=== PATIENT | male | born 1955 | race Caucasian/White ===

== ENCOUNTER 2017-08-26 08:43 | Emergency (ER) | payer MEDICARE ==
--- NOTE | 2017-08-26 09:35 | XRAY Preliminary Report ---
Exam: XR KNEE 3 VIEW RT IMPRESSION: Mild DJD [facility] SITE ID: [id number]
--- NOTE | 2017-08-26 09:38 | XRAY Report ---
EXAM: RIGHT KNEE RADIOGRAPHY EXAM DATE: 08/26/2017 09:25 AM. CLINICAL HISTORY: Rt knee pain, no known trauma. COMPARISON: None. TECHNIQUE: 3 views. FINDINGS: Bones: Normal. No fractures or bone lesions. Joints: Osteophyte patellofemoral compartment. No effusion. No subluxations. Soft Tissues: Normal. No soft tissue swelling. IMPRESSION: Mild DJD RADIA Referring Provider Line: [phone] SITE ID: [id number]
[2017-08-26] MEDS ORDERED: DEXAMETHASONE 10 MG/ML VIAL PO STA (10:23)
[2017-08-26] MEDS ORDERED: LIDOCAINE PATCH 5% TOP STA (10:23)
[2017-08-26 11:05] VITALS: BP 132/77
--- NOTE | 2017-08-26 11:49 | ED Physician Documentation ---
History of Present Illness - Stated complaint Stated Complaint: KNEE PX - Chief complaint Chief Complaint: Ext Problem - Additonal information Additional information: hx from pt 61 male thin with knobby knees after kneeling in the garden he developed very painful swelling to ant right knee no fever or redness Review of Systems Skin: denies: Rash Musculoskeletal: reports: Joint pain PD PAST MEDICAL HISTORY - Past Medical History Past Medical History: Yes GI: GERD Musculoskeletal: Chronic back pain - Past Surgical History Past Surgical History: Yes Ortho: Spine surgery - Present Medications Home Medications: Ambulatory Orders Medication Instructions Recorded Confirmed Gabapentin [Neurontin] 300 mg PO 3-4XD 01/29/13 08/26/17 Cyclobenzaprine [Flexeril] 10 mg PO TID PRN #20 tablet 01/16/16 08/26/17 Oxycodone HCl/Acetaminophen 1 - 2 tab PO Q4H PRN #15 tablet 01/16/16 08/26/17 [Percocet 5-325 mg Tablet] oxyCODONE [Roxicodone] 5 mg PO Q6H PRN #4 tablet 08/26/17 predniSONE [Deltasone] 40 mg PO DAILY 5 Days tablet 08/26/17 - Allergies Allergies/Adverse Reactions: Allergies Allergy/AdvReac Type Severity Reaction Status Date / Time acetaminophen [From Vicodin] AdvReac Unknown Hallucinati Verified 08/26/17 09:00 ons hydrocodone bitartrate * AdvReac Unknown Hallucinati Verified 08/26/17 09:00 [From Vicodin] ons Sulfa (Sulfonamide AdvReac Unknown Rash Verified 08/26/17 09:00 Antibiotics) - Social History Does the pt smoke?: No Smoking Status: Never smoker Does the pt drink ETOH?: No Does the pt have substance abuse?: No - Immunizations Immunizations are current?: Yes Immunizations: TDAP >10years/unknown - POLST Patient has POLST: No PD ED PE NORMAL - Vitals Vital signs reviewed: Yes - Cardiac Cardiac: RRR - Respiratory Respiratory: Clear bilaterally - Derm Derm: Normal color, No rash - Extremities Extremities: Other (R knee + prepatellar swelling and tenderness, slightly warm but no erythema, prepatella pain with ROM but no sig knee jt pain or limited ROM ) Results - Vitals Vitals: Vital Signs - 24 hr 08/26/17 08/26/17 08:51 11:04 Temperature 36.6 C 36.8 C Heart Rate 96 75 Respiratory 20 18 Rate Blood Pressure 103/84 H 132/77 H O2 Saturation 98 100 Oxygen O2 Source Room air PD MEDICAL DECISION MAKING - ED course ED course: c/w prepatellar bursitis, not infected Departure - Departure Disposition: 01 Home, Self Care Clinical Impression: Prepatellar bursitis Qualifiers: Laterality: right Qualified Code(s): M70.41 - Prepatellar bursitis, right knee Condition: Good Instructions: ED Bursitis Follow-Up: Perez García MD [Primary Care Provider] - [facility] [Provider Group] Prescriptions: oxyCODONE [Roxicodone] 5 mg PO Q6H PRN #4 tablet PRN Reason: Severe Pain predniSONE [Deltasone] 40 mg PO DAILY 5 Days tablet Comments: The steroids should decrease the pain and swelling Ice and an RJ wrap will help too. I wrote for 4 strong pain pills to get you through today until the steroids start to work. Please call orthopedics to make an appointment for follow up and further care if the symptoms persist Return if worse (fever, redness, drainage, worsening pain)
== END 2017-08-26 11:56 | disposition home or self-care (01) ==
LOC: ED 08:43
DX: M70.41 Prepatellar bursitis, right knee (principal); Y93.H2 Activity, gardening and landscaping
CPT/HCPCS: 73562; 99283; A9270

== ENCOUNTER 2017-09-24 12:36 | Outpatient (CLI) | payer MEDICARE ==
--- NOTE | 2017-09-24 16:16 | MRI Report ---
EXAM: RIGHT KNEE MRI WITHOUT CONTRAST EXAM DATE: 09/24/2017 01:31 PM. CLINICAL HISTORY: Right knee medial meniscus tear. COMPARISON: Knee x-ray 09/24/2017. TECHNIQUE: Multiplanar, multisequence T1-weighted and fluid-sensitive sequences of the knee without c ontrast. Other: None. FINDINGS: Bones: No fractures or subluxations. No marrow edema. No bone lesions. Articular Cartilage: Unremarkable. Medial Meniscus: The medial meniscus is intact. Lateral Meniscus: The lateral meniscus is intact. Cruciate Ligaments: The anterior and posterior cruciate ligaments are intact. Collateral Ligaments: The medial collateral and lateral collateral ligamentous structures are intact. Tendons: The quadriceps, patellar, semimembranosus, and popliteus tendons are unremarkable. Musculature: No edema or fatty atrophy. Other: No effusion. No popliteal cyst. No loose bodies. The medial and lateral retinacula are intact . There is fluid in the prepatellar and infrapatellar bursa. Both bursal fluid collections appear loc ulated, suggesting inflammation. There is mild adjacent subcutaneous edema. IMPRESSION: 1. Prepatellar and infrapatellar bursitis. 2. No meniscal tear. The ligaments appear intact. RAD[facility] MUSCULOSKELETAL RADIOLOGY SECTION Referring Provider Line: [phone] SITE ID: [id number]
== END 2017-09-24 12:37 | disposition home or self-care (01) ==
LOC: DI 12:36
PROVIDERS: ATTEND Orthopaedic Surgery
DX: M71.561 Other bursitis, not elsewhere classified, right knee (principal)

== ENCOUNTER 2018-03-28 16:45 | Emergency (ER) | payer MEDICARE ==
[2018-03-28] MEDS ORDERED: LIDOCAINE 2% 10 ML MDV ONE (17:18)
--- NOTE | 2018-03-28 17:25 | ED Physician Documentation ---
PD HPI UPPER EXT INJURY - Stated complaint Stated Complaint: R THUMB LAC - Chief complaint Chief Complaint: Laceration - History obtained from History obtained from: Patient - History of Present Illness Location: Right, Finger (thumb) Type of injury: Laceration Where injury occurred: Home Timing - onset: Today Timing - duration: Minutes Timing - details: Abrupt onset, Still present Improved by: Rest, Immobilization Worsened by: Moving, Palpating Associated symptoms: No: Weakness, Numbness, Tingling Contributing factors: No: Anticoagulated Similar symptoms before: Diagnosis (laceration) Recently seen: Not recently seen - Additonal information Additional information: Previously well 62-year-old male was using a line brandon, trimming his yard and he went to cut the line and lacerated his thumb on the line cutter. Review of Systems Constitutional: denies: Fever Nose: denies: Congestion Throat: denies: Sore throat Respiratory: denies: Cough GI: denies: Vomiting Skin: reports: Laceration (s) PD PAST MEDICAL HISTORY - Past Medical History Past Medical History: Yes GI: GERD Musculoskeletal: Chronic back pain - Past Surgical History Past Surgical History: Yes Ortho: Spine surgery - Present Medications Home Medications: Ambulatory Orders Medication Instructions Recorded Confirmed Gabapentin [Neurontin] 300 mg PO 3-4XD 01/29/13 08/26/17 Oxycodone HCl/Acetaminophen 1 - 2 tab PO Q4H PRN #15 tablet 01/16/16 08/26/17 [Percocet 5-325 mg Tablet] - Allergies Allergies/Adverse Reactions: Allergies Allergy/AdvReac Type Severity Reaction Status Date / Time acetaminophen [From Vicodin] AdvReac Unknown Hallucinati Verified 03/28/18 16:50 ons hydrocodone bitartrate * AdvReac Unknown Hallucinati Verified 03/28/18 16:50 [From Vicodin] ons Sulfa (Sulfonamide AdvReac Unknown Rash Verified 03/28/18 16:50 Antibiotics) - Social History Does the pt smoke?: No Smoking Status: Never smoker Does the pt drink ETOH?: No Does the pt have substance abuse?: No - Immunizations Immunizations are current?: Yes Immunizations: TDAP current <10years - POLST Patient has POLST: No PD ED PE NORMAL - Vitals Vital signs reviewed: Yes (normal ) - General General: Alert and oriented X 3, No acute distress, Well developed/nourished - HEENT HEENT: Atraumatic, PERRL, EOMI - Respiratory Respiratory: No respiratory distress - Derm Derm: Normal color, Warm and dry, No rash - Extremities Extremities: No deformity, No edema, Other (over the tip of the left thumb is a clean linear laceration about 2.5cm in length. 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, No motor deficit, No sensory deficit, Normal speech Eye Opening: Spontaneous Motor: Obeys Commands Verbal: Oriented GCS Score: 15 - Psych Psych: Normal mood, Normal affect Results - Vitals Vitals: Vital Signs - 24 hr 03/28/18 16:48 Temperature 35.2 C L Heart Rate 76 Respiratory 18 Rate Blood Pressure 124/62 O2 Saturation 96 Oxygen O2 Source Room air Procedures - Laceration (location) right thumb Length in cm: 2.5 Wound type: Linear, Clean Neurovascular status: Sensory intact, Motor intact, Vascular intact Tendon involvement: Tendon intact Anesthesia: Lidocaine 2% Wound Preparation: Hibiclens, Irrigated copiously NS, Wound explored, To the base Skin layer closure: Nylon, Interrupted, Size #-0 - enter number (4-0) Other: Patient tolerated well, No complications, Neurovascular intact, Dressing applied, Tetanus UTD Complexity: Simple PD MEDICAL DECISION MAKING - ED course Complexity details: reviewed results, re-evaluated patient, considered differential, d/w patient ED course: 62-year-old male with a laceration to his thumb is sutured this laceration is simple and he is up-to-date on his tetanus. - Sepsis Event Vital Signs: Vital Signs - 24 hr 03/28/18 16:48 Temperature 35.2 C L Heart Rate 76 Respiratory 18 Rate Blood Pressure 124/62 O2 Saturation 96 Oxygen O2 Source Room air Departure - Departure Disposition: 01 Home, Self Care Clinical Impression: Laceration of right thumb Qualifiers: Encounter type: initial encounter Damage to nail status: without damage Foreign body presence: without foreign body Qualified Code(s): S61.011A - Laceration without foreign body of right thumb without damage to nail, initial encounter Condition: Stable Instructions: ED Laceration Hand Follow-Up: Perez García MD [Primary Care Provider] - Comments: Sutures should be removed in 7-10 days.
[2018-03-28 17:51] VITALS: BP 119/68
== END 2018-03-28 17:50 | disposition home or self-care (01) ==
LOC: ED 16:45
DX: S61.011A Laceration without foreign body of right thumb without damage to nail, initial encounter (principal); W29.3XXA Contact with powered garden and outdoor hand tools and machinery, initial encounter; Y93.H2 Activity, gardening and landscaping; Y92.007 Garden or yard of unspecified non-institutional (private) residence as the place of occurrence of the external cause
CPT/HCPCS: 12001; 99282; 99283

== ENCOUNTER 2018-09-24 17:51 | Emergency (ER) | payer MEDICARE ==
[2018-09-24 19:33] VITALS: BP 110/72
== END 2018-09-24 20:25 | disposition left against medical advice (07) ==
LOC: ED 17:51
DX: S00.411A Abrasion of right ear, initial encounter (principal); W22.8XXA Striking against or struck by other objects, initial encounter; Y92.89 Other specified places as the place of occurrence of the external cause; Z53.21 Procedure and treatment not carried out due to patient leaving prior to being seen by health care provider

== ENCOUNTER 2018-10-07 08:00 | Outpatient (CLI) | payer MEDICARE ==
[2018-10-07 13:13] LABS: BASOPHILS # (AUTO) 0.1 10^3/uL (0.0-0.1); BASOPHILS % (AUTO) 1.1 %; EOSINOPHILS # (AUTO) 0.2 10^3/uL (0.0-0.7); EOSINOPHILS % (AUTO) 3.2 %; HGB - HEMOGLOBIN 14.6 g/dL (14.0-18.0); LYMPHOCYTES # (AUTO) 1.6 10^3/uL (1.5-3.5); LYMPHOCYTES % (AUTO) 23.7 %; MEAN CORPUSCULAR HGB CONC 35.2 g/dL (32.0-36.0); MEAN CORPUSCULAR VOLUME 85.3 fL (80.0-94.0); MEAN PLATELET VOLUME 7.8 fL (7.4-11.4); MONOCYTES # (AUTO) 0.6 10^3/uL (0.0-1.0); MONOCYTES % (AUTO) 9.5 %; NEUTROPHILS # (AUTO) 4.1 10^3/uL (1.5-6.6); NEUTROPHILS % (AUTO) 62.5 %; PLT - PLATELET COUNT 256 10^3/uL (130-450); RED BLOOD COUNT 4.87 10^6/uL (4.70-6.10); RED CELL DISTRIBUTION WIDTH 13.3 % (12.0-15.0); WHITE BLOOD COUNT 6.6 x10^3/uL (4.8-10.8)
[2018-10-07 13:28] LABS: ALBUMIN/GLOBULIN RATIO 1.4 (1.0-2.2); ALKALINE PHOSPHATASE 69 IU/L (42-121); ALT ALANINE AMINOTRANSFERASE 42 IU/L (10-60); AST ASPARTATE AMINOTRANSFERASE 32 IU/L (10-42); BILIRUBIN,TOTAL 0.9 mg/dL (0.2-1.0); BUN - BLOOD UREA NITROGEN 18 mg/dL (6-20); CALCIUM 9.2 mg/dL (8.5-10.3); CARBON DIOXIDE - CO2 26 mmol/L (21-32); CHLORIDE 103 mmol/L (101-111); CHOL/HDL RATIO 4.3 (<5.0); CHOLESTEROL 187 mg/dL; GFR - MDRD 76 (>89); GLUCOSE 129 mg/dL (70-100); HDL CHOLESTEROL 44 mg/dL; LDL CHOLESTEROL,CALCULATED 124 mg/dL; LDL/HDL RATIO 2.8 (<3.6); SODIUM 136 mmol/L (135-145); TOTAL PROTEIN 6.9 g/dL (6.7-8.2); VLDL CHOLESTEROL 19 mg/dL
== END 2018-10-07 23:59 | disposition home or self-care (01) ==
LOC: LAB.WCP 08:00
PROVIDERS: ATTEND Family Medicine
DX: E78.9 Disorder of lipoprotein metabolism, unspecified (principal); K76.0 Fatty (change of) liver, not elsewhere classified
CPT/HCPCS: 36415; 80053; 80061; 84443; 85025; G0103; 83721; 84153

== ENCOUNTER 2019-03-17 08:52 | Emergency (ER) | payer MEDICARE ==
[2019-03-17] MEDS ORDERED: HYDROmorphone 1 MG/ML CARPUJECT IVP STA (09:22)
[2019-03-17 09:40] LABS: BASOPHILS # (AUTO) 0.1 10^3/uL (0.0-0.1); BASOPHILS % (AUTO) 0.3 %; EOSINOPHILS # (AUTO) 0.1 10^3/uL (0.0-0.7); HGB - HEMOGLOBIN 13.8 g/dL (14.0-18.0); LYMPHOCYTES # (AUTO) 2.3 10^3/uL (1.5-3.5); LYMPHOCYTES % (AUTO) 15.9 %; MEAN CORPUSCULAR HEMOGLOBIN 29.9 pg (27.0-31.0); MEAN CORPUSCULAR HGB CONC 35.8 g/dL (32.0-36.0); MEAN CORPUSCULAR VOLUME 83.5 fL (80.0-94.0); MEAN PLATELET VOLUME 9.1 fL (7.4-11.4); MONOCYTES # (AUTO) 0.8 10^3/uL (0.0-1.0); MONOCYTES % (AUTO) 5.2 %; NEUTROPHILS # (AUTO) 10.3 10^3/uL (1.5-6.6); NEUTROPHILS % (AUTO) 72.3 %; PLT - PLATELET COUNT 277 10^3/uL (130-450); RED BLOOD COUNT 4.62 10^6/uL (4.70-6.10); RED CELL DISTRIBUTION WIDTH 12.3 % (12.0-15.0); WHITE BLOOD COUNT 14.3 x10^3/uL (4.8-10.8)
--- NOTE | 2019-03-17 09:50 | ED Physician Documentation ---
History of Present Illness - Stated complaint Stated Complaint: KNEE SWOLLEN - Chief complaint Chief Complaint: Ext Problem - History obtained from History obtained from: Patient, Family - History of Present Illness Timing: How many days ago (several) Pain level max: 10 Pain level now: 9 Severity Comments: severe Left knee pain Quality: aching, no radiation Radiates to: none Improved by: rest, not moving Worsened by: touching, moving, weight bearing Associated symptoms: no fever. Mild redness and moderate swelling of the L knee - Treatment prior to arrival Treatment prior to arrival: Pt is taking percocet for pain. he was seen 2 times at [place] for the same. At the first ED visit they drained his L knee and sent labs. They called him back the following day for reports of a positive culture. But then sent him home again when he returned. His and him are not sure of his diagnosis. No hx of traum, no hx of gout. Pt has no hx of diabetes or immunocompromise. He has no hx of IVDA. he denies taking blood thinners. He has no hx of knee surgery or injury prior to this event. Review of Systems Ten Systems: 10 systems reviewed and negative Constitutional: denies: Fever, Chills GI: denies: Abdominal Pain, Nausea, Vomiting Skin: reports: Other (redness over L knee) Musculoskeletal: reports: Joint pain, Joint swelling, Pain with weight bearing Neurologic: denies: Focal weakness, Numbness Immunocompromised: reports: Reviewed and negative PD PAST MEDICAL HISTORY - Past Medical History Past Medical History: Yes GI: GERD Musculoskeletal: Chronic back pain - Past Surgical History Past Surgical History: Yes Ortho: Spine surgery - Present Medications Home Medications: Ambulatory Orders Medication Instructions Recorded Confirmed Gabapentin [Neurontin] 300 mg PO 3-4XD 01/29/13 09/24/18 Oxycodone HCl/Acetaminophen 1 - 2 tab PO Q4H PRN #15 tablet 01/16/16 09/24/18 [Percocet 5-325 mg Tablet] Ascorbic Acid [Vitamin C] 09/24/18 Cholecalciferol (Vitamin D3) 09/24/18 [Vitamin D3] [place]-3/Dha/Epa/Fish Oil [Fish Oil 09/24/18 1,000 mg Softgel] RX: Multivitamin [Daily Multiple 09/24/18 Vitamin] Zinc Gluconate [Zinc] 09/24/18 Amox/Clav 875/125 [Augmentin] 1 each PO Q12H #14 tablet 03/17/19 - Allergies Allergies/Adverse Reactions: Allergies Allergy/AdvReac Type Severity Reaction Status Date / Time clindamycin Allergy Edema Verified 03/17/19 09:17 acetaminophen [From Vicodin] AdvReac Unknown Hallucinati Verified 03/17/19 09:17 ons hydrocodone bitartrate * AdvReac Unknown Hallucinati Verified 03/17/19 09:17 [From Vicodin] ons Sulfa (Sulfonamide AdvReac Unknown Rash Verified 03/17/19 09:17 Antibiotics) aspirin AdvReac Unknown Verified 03/17/19 09:17 - Social History Does the pt smoke?: No Smoking Status: Never smoker Does the pt drink ETOH?: No Does the pt have substance abuse?: No - Immunizations Immunizations are current?: Yes Immunizations: TDAP current <10years - POLST Patient has POLST: No PD ED PE NORMAL - Vitals Vital signs reviewed: Yes - General General: Alert and oriented X 3 - HEENT HEENT: Atraumatic - Neck Neck: Supple, no meningeal sign - Cardiac Cardiac: RRR - Respiratory Respiratory: No respiratory distress - Abdomen Abdomen: Soft, Non distended - Male Male : Deferred - Rectal Rectal: Deferred - Derm Derm: Warm and dry, No rash, Other (mild erythema overlying L knee) - Neuro Neuro: Alert and oriented X 3 Eye Opening: Spontaneous Motor: Obeys Commands Verbal: Oriented GCS Score: 15 - Psych Psych: Normal mood, Normal affect PD ED PE EXPANDED - Extremities Extremities: Tenderness, Swelling, Motor intact, Sensory intact, Vascular intact, Other (right warm prepatellar bursa. no pain with axial loading of the L leg). No: Deformity, Pedal edema L, Left calf TTP/cord Results - Vitals Vitals: Oxygen O2 Source Room air - Labs Labs: Laboratory Tests 03/17/19 03/17/19 03/17/19 09:30 09:30 09:30 WBC 14.3 H RBC 4.62 L Hgb 13.8 L Hct 38.6 L MCV 83.5 MCH 29.9 MCHC 35.8 RDW 12.3 Plt Count 277 MPV 9.1 Neut # (Auto) 10.3 H Lymph # (Auto) 2.3 [place] # (Auto) 0.8 Eos # (Auto) 0.1 Baso # (Auto) 0.1 Absolute Nucleated RBC 0.00 Nucleated RBC % 0.0 ESR 11 Sodium 136 Potassium 3.6 Chloride 99 L Carbon Dioxide 23 Anion Gap 14.0 H BUN 18 Creatinine 1.0 Estimated GFR (MDRD) 76 L Glucose 265 H Calcium 8.9 C-Reactive Protein 1.6 H Procedures - Arthrocentesis Joint: Knee (prepatellar L knee bursa was aspirated.) Preparation: Consent obtained, Sterile prep and drape, Ultrasound used Anesthesia: Lidocaine 1% Fluid: Clear (serous fluid) Aftercare: Dressing applied, No complications, Other (pain improved after), Patient tolerated well PD MEDICAL DECISION MAKING - ED course Complexity details: reviewed old records, reviewed results, re-evaluated patient, considered differential, d/w patient, d/w family ED course: ddx - inflammatory vs infectious bursitis, septic joint, arthritis, gout, pseudogout. 63 y/o M with L knee pain with fluctuance prepatellar bursa. Seen at outside hospital and evaluated for septic arthritis and had a tap of the bursa not the knee joint which showed staph aureus. Labs here some some mild leukocytosis. pt has a mildly elevated crp and a normal esr. he is afebrile and he has no pain with axial loading of the L knee but pain mainly with bending of the knee, likely aggravating the bursa. Suspect this is an infectious bursitis. Aspirated fluid from the bursa appears normal. Pain improved after aspiration. Will start antibiotics and continue analgesics for bursitis. Pt and given instructions for return if worsening pain, fever or inability to bear weight or new concerns. Departure - Departure Disposition: 01 Home, Self Care Clinical Impression: Prepatellar bursitis Condition: Stable Record reviewed to determine appropriate education?: Yes Instructions: ED Bursitis Follow-Up: Perez García MD [Primary Care Provider] - Prescriptions: Amox/Clav 875/125 [Augmentin] 1 each PO Q12H #14 tablet Comments: Your examination, labs and bursa aspiration were consistent with knee bursitis. Your symptoms improved here with aspiration of bursal fluid and pain medicine. Continue your steroid course until complete. Ice the knee at least 3 times a day for 20 minutes at a time until improved. Use an ranjeet wrap for pain and to improve comfort. Discharge Date/Time: 03/17/19 14:03
[2019-03-17 09:59] LABS: CALCIUM 8.9 mg/dL (8.5-10.3); CRP - C-REACTIVE PROTEIN 1.6 mg/dL (0-1.0)
[2019-03-17] MEDS ORDERED: LIDOCAINE 1% 2 ML VIAL ONE (13:12)
[2019-03-17] MEDS ORDERED: cephALEXin 250 MG CAPSULE PO STA (13:30)
[2019-03-17] MEDS ORDERED: AMOX/CLAV 875 MG/125 MG TABLET PO STA (13:39)
[2019-03-17] MEDS ORDERED: LIDOCAINE 1% 2 ML VIAL SUBQ STA (13:45)
[2019-03-17 13:46] VITALS: BP 133/83
== END 2019-03-17 14:03 | disposition home or self-care (01) ==
LOC: ED 08:52
DX: M70.42 Prepatellar bursitis, left knee (principal)
CPT/HCPCS: 20610; 36415; 80048; 85025; 85651; 86140; 96374; 99283; 99284; A9270; J1170; 20600

== ENCOUNTER 2019-10-28 10:30 | Outpatient (CLI) | payer MEDICARE | END 2019-10-28 23:59 | disposition home or self-care (01) | LOC: LAB.WCP 10:30 | PROVIDERS: ATTEND Nurse Practitioner Family | DX: R05 Cough (principal) | CPT/HCPCS: 87275; 87276 ==

== ENCOUNTER 2019-10-28 10:39 | Outpatient (CLI) | payer MEDICARE ==
--- NOTE | 2019-10-28 15:03 | XRAY Report ---
Reason: COUGH Procedure Date: 10/28/2019 Accession Number: [id number] / [id number] Procedure: WCP - Chest 2 View X-Ray CPT Code: 80471 Final Report FULL RESULT: EXAM: CHEST RADIOGRAPHY EXAM DATE: 10/28/2019 10:39 AM. CLINICAL HISTORY: COUGH. COMPARISON: CHEST 2 VIEW PA/LAT 07/16/2018 10:25 AM. TECHNIQUE: 2 views. FINDINGS: Lungs/Pleura: No focal opacities evident. No pleural effusion. No pneumothorax. Normal volumes. Mediastinum: Heart and mediastinal contours are unremarkable. Other: Postsurgical changes in the cervical spine. Degenerative changes in the thoracic spine and shoulders. IMPRESSION: 1. No radiographic evidence of acute cardiopulmonary disease. 2. Stable degenerative changes in the spine and shoulders and stable postsurgical changes in the cervical spine. RADIA
== END 2019-10-28 23:59 | disposition home or self-care (01) ==
LOC: DI.WCP 10:39
PROVIDERS: ATTEND Nurse Practitioner Family
DX: R05 Cough (principal)
CPT/HCPCS: 71046; 87275; 87276

== ENCOUNTER 2020-07-22 10:15 | Emergency (ER) | payer MEDICARE ==
--- NOTE | 2020-07-22 11:01 | ED Physician Documentation ---
PD HPI CHEST PAIN - Stated complaint Stated Complaint: LT SIDE CHEST PX - Chief complaint Chief Complaint: Cardiac - History obtained from History obtained from: Patient - History of Present Illness Timing - onset: How many days ago (few) Timing - onset during: Exertion (he had helped lift a wheelchair ramp into place and had onset left uper chest pain later in the day. Has continued pain with ROM of the left arm, lifting, and some with palpation of the chest. No pain with breathing.) Timing - duration: Days Timing - details: Gradual onset, Waxing and waning Quality: Aching, Pain Location: Left chest Radiation: No: Jaw, Neck, Back Improved by: Rest Worsened by: Exertion, Movement. No: Inspiration Associated symptoms: No: Shortness of air, Diaphoresis, Nausea, Feeling faint / dizzy, General Weakness, Palpitations, Cough Similar symptoms before: Has not had sx before Review of Systems Constitutional: denies: Fever, Chills Nose: denies: Rhinorrhea / runny nose, Congestion Throat: denies: Sore throat Cardiac: reports: Chest pain / pressure. denies: Palpitations, Pedal edema, Calf pain Respiratory: denies: Dyspnea, Cough, Wheezing PD PAST MEDICAL HISTORY - Past Medical History Cardiovascular: None Respiratory: None Endocrine/Autoimmune: None GI: GERD Musculoskeletal: Chronic back pain - Past Surgical History Past Surgical History: Yes Ortho: Spine surgery - Present Medications Home Medications: Ambulatory Orders Medication Instructions Recorded Confirmed Gabapentin [Neurontin] 300 mg PO 3-4XD 01/29/13 09/24/18 Oxycodone HCl/Acetaminophen 1 - 2 tab PO Q4H PRN #15 tablet 01/16/16 09/24/18 [Percocet 5-325 mg Tablet] Ascorbic Acid [Vitamin C] 09/24/18 Cholecalciferol (Vitamin D3) 09/24/18 [Vitamin D3] Multivitamin [Daily Multiple 09/24/18 Vitamin] [place]-3/Dha/Epa/Fish Oil [Fish Oil 09/24/18 1,000 mg Softgel] Zinc Gluconate [Zinc] 09/24/18 Amox/Clav 875/125 [Augmentin] 1 each PO Q12H #14 tablet 03/17/19 Naproxen [EC-Naproxen] 500 mg PO BID #20 tablet. 07/22/20 oxyCODONE [Roxicodone] 5 mg PO Q6H PRN #14 tablet 07/22/20 tiZANidine [Zanaflex] 4 mg PO Q8H PRN #20 tablet 07/22/20 - Allergies Allergies/Adverse Reactions: Allergies Allergy/AdvReac Type Severity Reaction Status Date / Time clindamycin Allergy Edema Verified 07/22/20 10:32 acetaminophen [From Vicodin] AdvReac Unknown Hallucinati Verified 07/22/20 10:32 ons hydrocodone bitartrate * AdvReac Unknown Hallucinati Verified 07/22/20 10:32 [From Vicodin] ons Sulfa (Sulfonamide AdvReac Unknown Rash Verified 07/22/20 10:32 Antibiotics) aspirin AdvReac Unknown Verified 07/22/20 10:32 - Social History Does the pt smoke?: No Smoking Status: Never smoker Does the pt drink ETOH?: No Does the pt have substance abuse?: No - Immunizations Immunizations are current?: Yes Immunizations: TDAP current <10years - POLST Patient has POLST: No PD ED PE NORMAL - Vitals Vital signs reviewed: Yes - General General: Alert and oriented X 3, No acute distress, Well developed/nourished - HEENT HEENT: Pharynx benign - Neck Neck: Supple, no meningeal sign, No bony TTP, No adenopathy - Cardiac Cardiac: RRR, No murmur - Respiratory Respiratory: Clear bilaterally, Other (left upper chest/pectoral area with some tenderness. No rash nor redness. ) - Abdomen Abdomen: Soft, Non tender - Back Back: No spinal TTP - Derm Derm: Normal color, Warm and dry, No rash - Extremities Extremities: No edema, No calf tenderness / cord - Neuro Neuro: Alert and oriented X 3, No motor deficit, Normal speech Results - Vitals Vitals: Oxygen O2 Source Room air - EKG (time done) 10:312 Rate: Rate (enter#) (71) Rhythm: NSR Sylvia: Normal Intervals: Normal NE QRS: Normal Ischemia: Normal ST segments. No: ST elevation c/w ischemia, ST depression - Rads (name of study) CXR Radiology: Prelim report reviewed (normal), See rad report PD MEDICAL DECISION MAKING - ED course Complexity details: reviewed results, considered differential (local pain left upper chest/pectoral area with pain on movement and to palpation. ECG and CXR are normal. ), d/w patient Departure - Departure Disposition: 01 Home, Self Care Clinical Impression: Chest wall muscle strain Qualifiers: Encounter type: initial encounter Qualified Code(s): S29.011A - Strain of muscle and tendon of front wall of thorax, initial encounter Condition: Stable Record reviewed to determine appropriate education?: Yes Instructions: ED Chest Pain Atypical Unkn Cause Follow-Up: Maria D Ibrahim MD [Primary Care Provider] - Prescriptions: Naproxen [EC-Naproxen] 500 mg PO BID #20 tablet. oxyCODONE [Roxicodone] 5 mg PO Q6H PRN #14 tablet PRN Reason: Pain tiZANidine [Zanaflex] 4 mg PO Q8H PRN #20 tablet PRN Reason: Spasms Comments: Your chest x-ray and EKG are normal. It sounds musculoskeletal at this point. Use naproxen anti-inflammatory twice daily with food for the next 5 to 7 days. Add Tylenol if needed for pain. Continue your usual pain medicine. Add another dose of oxycodone 2 other times daily as needed for pain. Also add tizanidine muscle relaxant if needed for spasm. Recheck if not improved well over the next few days and sooner if other symptoms develop. Discharge Date/Time: 07/22/20 13:25
[2020-07-22] MEDS ORDERED: KETOROLAC 30 MG/ML VIAL IM STA (11:16)
[2020-07-22] MEDS ORDERED: HYDROmorphone 2 MG/ML VIAL IM STA (11:16)
--- NOTE | 2020-07-22 11:58 | XRAY Report ---
PROCEDURE: Chest 2 View X-Ray INDICATIONS: dyspnea/ cough TECHNIQUE: 2 view(s) of the chest. COMPARISON: 10/28/2019. FINDINGS: Surgical changes and devices: Surgical hardware in lower cervical spine is again seen. Lungs and pleura: No pleural effusions or pneumothorax. Lungs are clear. Mediastinum: Mediastinal contours are normal. Heart size is normal. Bones and chest wall: No suspicious bony abnormalities. Soft tissues appear unremarkable. IMPRESSION: No acute cardiopulmonary pathology. Reviewed by: Devyn Beck MD on 07/22/2020 10:57 AM [facility] Approved by: Devyn Beck MD on 07/22/2020 10:57 AM [facility] Station ID: [id number]
[2020-07-22] MEDS ORDERED: oxyCODONE 5 MG TABLET PO STA (12:29)
[2020-07-22 13:24] VITALS: BP 128/82
== END 2020-07-22 13:25 | disposition home or self-care (01) ==
LOC: ED 10:15
DX: S29.011A Strain of muscle and tendon of front wall of thorax, initial encounter (principal); X50.0XXA Overexertion from strenuous movement or load, initial encounter; Y93.89 Activity, other specified
CPT/HCPCS: 71046; 93005; 96372; 99283; 99284; A9270; J1170

== ENCOUNTER 2022-10-19 12:04 | Outpatient (CLI) | payer MEDICARE ==
--- NOTE | 2022-10-19 15:33 | XRAY Report ---
PROCEDURE: Lumbar Spine w/Flex/Ext INDICATIONS: LUMBAR SPONDYLOSIS TECHNIQUE: AP & Lateral views of the lumbar spine were acquired, followed by flexion & extension edgar ding views of the lumbar spine. COMPARISON: None. FINDINGS: Bones: 5 [id number] vertebrae are present. There is normal bony alignment. Loss of disc height , degenerative endplate changes and bilateral facet arthrosis throughout lumbar spine is seen. No ve rtebral body compression fractures. No suspicious bony lesions. Soft tissues: Overlying bowel gas pattern is normal. No suspicious soft tissue calcifications. Flexion/extension: There is slightly decreased range of motion, with preserved lumbar spine alignmen t. IMPRESSION: Degenerative disc disease throughout lumbar spine. No acute compression fracture or spon dylolisthesis. Slightly decreased range of motion on lateral flexion and extension views with preserv ed lumbar spine alignment. Reviewed by: Devyn Beck MD on 10/19/2022 3:32 PM PST Approved by: Devyn Beck MD on 10/19/2022 3:32 PM PST Station ID: [id number]
== END 2022-10-19 12:05 | disposition home or self-care (01) ==
LOC: DI 12:04
PROVIDERS: ATTEND Pain Medicine Pain Medicine
DX: M47.816 Spondylosis without myelopathy or radiculopathy, lumbar region (principal); M51.36 Other intervertebral disc degeneration, lumbar region

== ENCOUNTER 2022-12-31 07:52 | Outpatient (CLI) | payer MEDICARE ==
[2022-12-31 08:07] LABS: BASOPHILS # (AUTO) 0.1 10^3/uL (0.0-0.1); BASOPHILS % (AUTO) 0.8 %; EOSINOPHILS # (AUTO) 0.2 10^3/uL (0.0-0.7); EOSINOPHILS % (AUTO) 2.7 %; HCT - HEMATOCRIT 42.6 % (42.0-52.0); HGB - HEMOGLOBIN 14.8 g/dL (14.0-18.0); LYMPHOCYTES # (AUTO) 1.7 10^3/uL (1.5-3.5); LYMPHOCYTES % (AUTO) 22.1 %; MEAN CORPUSCULAR HEMOGLOBIN 29.8 pg (27.0-31.0); MEAN CORPUSCULAR HGB CONC 34.7 g/dL (32.0-36.0); MEAN CORPUSCULAR VOLUME 85.7 fL (80.0-94.0); MEAN PLATELET VOLUME 8.9 fL (7.4-11.4); MONOCYTES # (AUTO) 0.5 10^3/uL (0.0-1.0); NEUTROPHILS # (AUTO) 5.3 10^3/uL (1.5-6.6); NEUTROPHILS % (AUTO) 67.9 %; PLT - PLATELET COUNT 222 10^3/uL (130-450); RED BLOOD COUNT 4.97 10^6/uL (4.70-6.10); RED CELL DISTRIBUTION WIDTH 12.7 % (12.0-15.0); WHITE BLOOD COUNT 7.7 x10^3/uL (4.8-10.8)
[2022-12-31 08:26] LABS: ESTIMATED AVERAGE GLUCOSE 120 mg/dL (70-100); HEMOGLOBIN A1c% 5.8 % (4.27-6.07)
[2022-12-31 08:29] LABS: ALBUMIN/GLOBULIN RATIO 1.4 (1.0-2.2); ALKALINE PHOSPHATASE 75 IU/L (42-121); ALT ALANINE AMINOTRANSFERASE 21 IU/L (10-60); AST ASPARTATE AMINOTRANSFERASE 21 IU/L (10-42); BILIRUBIN,TOTAL 0.6 mg/dL (0.2-1.0); BUN - BLOOD UREA NITROGEN 19 mg/dL (6-20); CARBON DIOXIDE - CO2 27 mmol/L (21-32); CHLORIDE 104 mmol/L (101-111); CHOL/HDL RATIO 3.8 (<5.0); CHOLESTEROL 177 mg/dL; CREATININE 1.2 mg/dL (0.6-1.2); GFR - MDRD 61 (>89); GLUCOSE 122 mg/dL (70-100); HDL CHOLESTEROL 46 mg/dL; LDL CHOLESTEROL,CALCULATED 118 mg/dL; LDL/HDL RATIO 2.6 (<3.6); POTASSIUM 4.1 mmol/L (3.5-5.0); SODIUM 140 mmol/L (135-145); TOTAL PROTEIN 6.9 g/dL (6.7-8.2); TRIGLYCERIDES 66 mg/dL; VLDL CHOLESTEROL 13 mg/dL
[2022-12-31 08:37] LABS: THYROID STIMULATING HORMONE 1.81 uIU/mL (0.34-5.60)
== END 2022-12-31 07:53 | disposition home or self-care (01) ==
LOC: LAB 07:52
PROVIDERS: ATTEND Family Medicine
DX: R73.03 Prediabetes (principal); R49.0 Dysphonia; E78.5 Hyperlipidemia, unspecified; J44.9 Chronic obstructive pulmonary disease, unspecified; Z12.5 Encounter for screening for malignant neoplasm of prostate
CPT/HCPCS: 36415; 80053; 80061; 83036; 84443; 85025; G0103; 83721; 84153

== ENCOUNTER 2023-10-02 10:07 | Outpatient (CLI) | payer MEDICARE ==
[2023-10-02 10:36] LABS: BASOPHILS # (AUTO) 0.1 10^3/uL (0.0-0.1); BASOPHILS % (AUTO) 0.5 %; EOSINOPHILS # (AUTO) 0.2 10^3/uL (0.0-0.7); EOSINOPHILS % (AUTO) 1.6 %; HCT - HEMATOCRIT 42.8 % (42.0-52.0); HGB - HEMOGLOBIN 14.7 g/dL (14.0-18.0); LYMPHOCYTES # (AUTO) 1.4 10^3/uL (1.5-3.5); LYMPHOCYTES % (AUTO) 12.1 %; MEAN CORPUSCULAR HGB CONC 34.3 g/dL (32.0-36.0); MEAN CORPUSCULAR VOLUME 87.3 fL (80.0-94.0); MEAN PLATELET VOLUME 9.2 fL (7.4-11.4); MONOCYTES # (AUTO) 0.6 10^3/uL (0.0-1.0); MONOCYTES % (AUTO) 5.4 %; NEUTROPHILS # (AUTO) 9.3 10^3/uL (1.5-6.6); NEUTROPHILS % (AUTO) 80.1 %; PLT - PLATELET COUNT 255 10^3/uL (130-450); RED CELL DISTRIBUTION WIDTH 12.8 % (12.0-15.0); WHITE BLOOD COUNT 11.6 x10^3/uL (4.8-10.8)
[2023-10-02 10:41] LABS: ESTIMATED AVERAGE GLUCOSE 117 mg/dL (70-100); HEMOGLOBIN A1c% 5.7 % (4.27-6.07)
[2023-10-02 10:54] LABS: ALBUMIN 4.3 g/dL (3.2-5.5); ALBUMIN/GLOBULIN RATIO 1.5 (1.0-2.2); ALKALINE PHOSPHATASE 75 IU/L (42-121); ALT ALANINE AMINOTRANSFERASE 17 IU/L (10-60); AST ASPARTATE AMINOTRANSFERASE 17 IU/L (10-42); BILIRUBIN,TOTAL 0.8 mg/dL (0.2-1.0); BUN - BLOOD UREA NITROGEN 13 mg/dL (6-20); CALCIUM 9.6 mg/dL (8.5-10.3); CARBON DIOXIDE - CO2 29 mmol/L (21-32); CHLORIDE 103 mmol/L (101-111); CHOL/HDL RATIO 4.1 (<5.0); CHOLESTEROL 171 mg/dL; GFR - MDRD 75 (>89); GLUCOSE 119 mg/dL (74-104); HDL CHOLESTEROL 42 mg/dL; LDL CHOLESTEROL,CALCULATED 97 mg/dL; LDL/HDL RATIO 2.3 (<3.6); POTASSIUM 4.4 mmol/L (3.5-4.5); SODIUM 139 mmol/L (135-145); TOTAL PROTEIN 7.1 g/dL (6.4-8.9); TRIGLYCERIDES 160 mg/dL (48-352); VLDL CHOLESTEROL 32 mg/dL
[2023-10-02 11:08] LABS: THYROID STIMULATING HORMONE 0.74 uIU/mL (0.34-5.60)
== END 2023-10-02 10:08 | disposition home or self-care (01) ==
LOC: LAB 10:07
PROVIDERS: ATTEND Family Medicine
DX: G47.61 Periodic limb movement disorder (principal); Z12.5 Encounter for screening for malignant neoplasm of prostate; J44.9 Chronic obstructive pulmonary disease, unspecified; R49.0 Dysphonia; R73.03 Prediabetes; Z79.891 Long term (current) use of opiate analgesic; E78.5 Hyperlipidemia, unspecified
CPT/HCPCS: 36415; 80053; 80061; 83036; 84443; 85025; G0103; 83721; 84153

== ENCOUNTER 2024-01-24 13:19 | Outpatient (CLI) | payer MEDICARE ==
[2024-01-24 13:43] LABS: CALCIUM 9.9 mg/dL (8.5-10.3); CREATININE 1.1 mg/dL (0.6-1.3); POTASSIUM 4.1 mmol/L (3.5-4.5)
[2024-01-24 13:46] LABS: ESTIMATED AVERAGE GLUCOSE 126 mg/dL (70-100)
== END 2024-01-24 13:20 | disposition home or self-care (01) ==
LOC: LAB 13:19
PROVIDERS: ATTEND Family Medicine
DX: R73.03 Prediabetes (principal); Z12.5 Encounter for screening for malignant neoplasm of prostate
CPT/HCPCS: 36415; 80048; 83036; G0103; 84153

== ENCOUNTER 2024-05-05 06:58 | Outpatient (CLI) | payer MEDICARE ==
[2024-05-05 07:32] LABS: BASOPHILS # (AUTO) 0.1 10^3/uL (0.0-0.1); BASOPHILS % (AUTO) 0.8 %; EOSINOPHILS # (AUTO) 0.2 10^3/uL (0.0-0.7); EOSINOPHILS % (AUTO) 2.9 %; HCT - HEMATOCRIT 40.5 % (42.0-52.0); HGB - HEMOGLOBIN 13.9 g/dL (14.0-18.0); LYMPHOCYTES # (AUTO) 2.1 10^3/uL (1.5-3.5); LYMPHOCYTES % (AUTO) 29.1 %; MEAN CORPUSCULAR HEMOGLOBIN 30.1 pg (27.0-31.0); MEAN CORPUSCULAR HGB CONC 34.3 g/dL (32.0-36.0); MEAN CORPUSCULAR VOLUME 87.7 fL (80.0-94.0); MEAN PLATELET VOLUME 8.9 fL (7.4-11.4); MONOCYTES # (AUTO) 0.5 10^3/uL (0.0-1.0); MONOCYTES % (AUTO) 6.7 %; NEUTROPHILS # (AUTO) 4.4 10^3/uL (1.5-6.6); NEUTROPHILS % (AUTO) 60.2 %; PLT - PLATELET COUNT 269 10^3/uL (130-450); RED BLOOD COUNT 4.62 10^6/uL (4.70-6.10); RED CELL DISTRIBUTION WIDTH 12.5 % (12.0-15.0); WHITE BLOOD COUNT 7.3 x10^3/uL (4.8-10.8)
[2024-05-05 07:36] LABS: ALBUMIN 4.1 g/dL (3.2-5.5); ALBUMIN/GLOBULIN RATIO 1.6 (1.0-2.2); ALKALINE PHOSPHATASE 73 IU/L (42-121); ALT ALANINE AMINOTRANSFERASE 14 IU/L (10-60); AST ASPARTATE AMINOTRANSFERASE 15 IU/L (10-42); BILIRUBIN,TOTAL 0.4 mg/dL (0.2-1.0); BUN - BLOOD UREA NITROGEN 12 mg/dL (6-20); CALCIUM 9.3 mg/dL (8.5-10.3); CARBON DIOXIDE - CO2 29 mmol/L (21-32); CHLORIDE 102 mmol/L (101-111); CHOL/HDL RATIO 3.6 (<5.0); CHOLESTEROL 159 mg/dL; CREATININE 0.9 mg/dL (0.6-1.3); GFR - MDRD 84 (>89); GLUCOSE 109 mg/dL (74-104); HDL CHOLESTEROL 44 mg/dL; LDL CHOLESTEROL,CALCULATED 84 mg/dL; LDL/HDL RATIO 1.9 (<3.6); SODIUM 137 mmol/L (135-145); TOTAL PROTEIN 6.7 g/dL (6.4-8.9); TRIGLYCERIDES 155 mg/dL; VLDL CHOLESTEROL 31 mg/dL
[2024-05-05 12:56] LABS: ESTIMATED AVERAGE GLUCOSE 111 mg/dL (70-100); HEMOGLOBIN A1c% 5.5 % (4.27-6.07)
== END 2024-05-05 06:59 | disposition home or self-care (01) ==
LOC: LAB 06:58
PROVIDERS: ATTEND Family Medicine
DX: N52.9 Male erectile dysfunction, unspecified (principal); G47.61 Periodic limb movement disorder; J44.9 Chronic obstructive pulmonary disease, unspecified; R49.0 Dysphonia; R73.03 Prediabetes; Z79.891 Long term (current) use of opiate analgesic; E78.5 Hyperlipidemia, unspecified; K58.9 Irritable bowel syndrome, unspecified
CPT/HCPCS: 36415; 80053; 80061; 83036; 83721; 84403; 84443; 85025